=== PATIENT | male | born 1975 | race Caucasian/White ===

== ENCOUNTER 2024-07-25 08:51 | Outpatient (REF) | payer MEDICAID, SELFPAY ==
--- OUTSIDE RECORDS SUMMARY | 2024-07-25 09:10 | XMS_ITS | Clinical Summary ---
Author Organization [facility] Address [address] [facility] [facility] 7t [place] [address] Care Team Providers Care [employer] Agent Name Role Phone Rose Stratton MD Primary Care Provider [phone] Allergies No known active allergies Medications hydroCHLOROthiaz juan (HYDRODiuril) 25 MG tablet Take 1 tablet (25 mg) by mouth Once per day. 30 tablet 11 07/24/2024 6 Active aspirin 81 MG EC tablet Take 1 tablet (81 mg) by mouth Once per day. 30 tablet 11 07/24/2024 6 Active Active Problems Problem Noted Date Diagnosed Date Primary hypertension 07/24/2024 Tobacco abuse 07/24/2024 Encounters Date Type Department Care Team Description 07/24/2024 9:00 AM EDT Office Visit [facility] [address] [place] [address] Rose Stratton MD Primary hypertension (Primary Dx); Tobacco abuse; Screening for colon cancer; Encounter for immunization; Dietary counseling; Exercise counseling; Testicular discomfort; Encounter for screening for respiratory tuberculosis 07/24/2024 Travel 07/05/2024 Population Health Risk Score [facility] (C3) Department [address] [id number] Provider, Population Health Generic from Last 3 Months Immunizations Name Administration Dates Next Due Tdap 07/24/2024 Family History Relation Name Status Comments Father Alive Mother Alive Social History Tobacco Use Types Packs/Day Years Used Date Smoking Tobacco: Some Days Cigarettes Smokeless Tobacco: Never Tobacco Cessation:Ready to Q uit: Not Asked; Counseling Given: Not Answered Alcohol Use Standard Drinks/Week Comments Yes 0 (1 standard drink = 0.6 oz pur e alcohol) Alcohol Answer Date Recorded How often do you have a drink containing alcohol ? 2 07/24/2024 How many drinks containing a lcohol do you have on a typical day when you are drinking? 2 07/24/2024 How often do you have six or more drinks on one occasion? 3 07/24/2024 Depression Answer Date Recorded Patient Health Questionnaire-9 Score 1 07/24/2024 Patient Health Questionnaire-9 Score 1 07/24/2024 Last PHQ-9: Questionnaire Data Not on file 0 07/24/2024 Housing Stability Answer Date Recorded What is your housing situation today? I have ran casas 07/24/[address] you li ve. Do you have problems with any of the following? None of the above 07/24/2024 Food Insecurity Answer Date Recorded Within the past 12 months, y ou worried that your food would run out before you got money to buy more: Never True 07/24/2024 Within the past 12 months,th e food you bought just didn't last and you didn't have enough money to get more: Never True 05/2024 Transportation Answer Date Recorded In the past 12 months, has l ack of transportation kept you from medical appts, meetings, work or from getting things needed for daily living? No 07/24/2024 Utilities Answer Date Recorded In the past 12 months, has t he electric, gas, oil or water company threatened to shut off services in your home? No 07/24/2024 Depression Answer Date Recorded Patient Health Questionnaire-2 Score 0 07/24/2024 Internet Access Answer Date Recorded Internet Access Q1 No 07/24/2024 Internet Access Q2 I do not want or need it 05/2024 Sex and Gender Information Value Date Recorded Sex Assigned at Male 07/18/2024 1:40 PM EDT Legal Sex Male 1:41 PM EST Gender Identity Male 07/23/2024 1:41 PM EDT Sexual Orientation Don't know 07/23/2024 1: 41 PM EDT Last Filed Vital Signs Vital Sign Reading Time Taken Comments Blood Pressure 164/102 07/24/2024 9:03 AM EDT Manually checked Pulse 83 07/24/2024 9:03 AM EDT Temperature 36.4 ??C (97.5 ??F) 07/24/2024 9 :03 AM EDT Respiratory Rate 18 07/24/2024 9:03 AM EDT Oxygen Saturation 99% 07/24/2024 9:0 3 AM EDT Inhaled Oxygen Concentration - - Weight 94.8 kg (209 lb) 07/24/2024 9:03 AM EDT Height 180.3 cm (5' 11 ) 07/24/2024 9:0 3 AM EDT Body Mass Index 29.15 07/24/2024 9:03 AM EDT Plan of Treatment Upcoming Encounters Date Type Department Care Team ([facility] st Contact Info) Description 08/16/2024 10:15 AM EDT Clinical Support [facility] [address] [place] [address] 09/13/2024 10:45 AM EDT Office Visit [facility] [address] [place] [address] Rose Stratton MD [address] [place] [address] Health Maintenance Due Date Last Done Comments CT Colonography 1976 Colonoscopy 1976 Colorectal Cancer Screening 1976 FIT DNA/Cologuard 1976 FIT 1976 FOBT 1976 Lipid Panel 1976 Sigmoidoscopy 1976 Family Planning (PISQ) 02/05/1991 Hepatitis C Screening 02/05/1994 Hepatitis B Vaccines (1 of 3 - 19+ 3-dose series) 02/05/1995 Pneumococcal Vaccine: Pediatrics (0 to 5 Years) and At-Risk Patients (6 to 49) Years) (1 of 2 - PCV) 02/05/1995 Influenza Vaccine (#1) 2024 Postp oned from 12/24/2023 (Patient Refused) Alcohol/Substance Use Screening 07/24/2025 07/24/2024 COVID-19 Vaccine (3 - 2023-2 5 season) 2025 09/30/2020, 09/09/2020 Postponed from 12/24/2023 (Patient Refused) Depression Screening 07/24/2025 07/24/2024, 07/24/2024 SDOH Screening 07/24/2025 07/24/2024 Tobacco Screening 07/24/2025 07/24/2024 Zoster Vaccines (1 of 2) 02/05/2026 DTaP/Tdap/Td Vaccines (2 - T d or Tdap) 07/24/2034 07/24/2024 RSV Patients and Patients Aged 60 years or older (1 - 1-dose 75+ series) 02/05/2051 HIV Screening Completed 01/26/2022 HIB Vaccines Aged Out No longer eligi ble based on patient's age to complete this topic HPV Vaccines Aged Out No longer eligi ble based on patient's age to complete this topic Hepatitis A Vaccines Aged Out No long er eligible based on patient's age to complete this topic IPV Vaccines Aged Out No longer eligi ble based on patient's age to complete this topic Meningococcal Vaccine Aged Out No kandi stacey eligible based on patient's age to complete this topic RSV under 20 months Aged Out No longe r eligible based on patient's age to complete this topic Rotavirus Vaccines Aged Out No longer eligible based on patient's age to complete this topic [place] [address] [place] [address] C3 Care Teams [employer] Agent Relationship Specialty Start Date End Date Rose Stratton MD [address] [place] [id number] PCP - General Family Medicine 07/24/24
--- OUTSIDE RECORDS SUMMARY | 2024-07-25 09:10 | XMS_ITS | Encounter Summary ---
Author Organization [employer] Address [address] 7t [place] [address] Care Team Providers Care Unit Support Representative Name Role Phone Rose Stratton MD Primary Care Provider [phone] Encounter Details Date Type Department Care Team (Latest Contact Info) Description 07/24/2024 Travel Social History Tobacco Use Types Packs/Day Years Used Date Smoking Tobacco: Some Days Cigarettes Smokeless Tobacco: Never Alcohol Use Standard Drinks/Week Comments Yes 0 [...] is your housing situation today? I have ranbea casas 07/24/[address] you [...] t he electric, gas, oil or water [employer] threatened to shut off services in your [...] Don't know 07/23/2024 1: 41 PM EDT documented as of this encounter Plan of Treatment Upcoming Encounters Date Type Department Care Team (Late st Contact Info) Description 08/16/2024 10:15 AM EDT Clinical Support [facility] MED [facility] PEDS [address] [place] [address] 09/13/2024 10:45 AM EDT Office Visit [facility] [address] [place] [address] Rose Stratton MD [address] [place] [address] documented as of this encounter Visit Diagnoses Not on filedocumented in this encounter Additional Health Concerns Assessment Noted Time PHQ-9 Depression Total Score: 1 07/25/19 25 9:07 AM EDT documented as of this encounter Care Teams Unit Support Representative Relationship Specialty Start Date End Date Rose Stratton MD [address] [place] [address] PCP - General Family Medicine 07/24/24 documented as of this encounter
--- OUTSIDE RECORDS SUMMARY | 2024-07-25 09:10 | XMS_ITS | Encounter Summary ---
Author Organization [employer] Address [address] [facility] 7t [place] [address] Care Team Providers Care Cement Mason Apprentice Name Role Phone Carlitos Stratton MD Primary Care Provider [phone] Reason for Referral * Consultation (Routine) - Authorized Specialty Diagnoses / Procedures Referred By Joseph douglass Referred To Contact Urology Diagnoses Testicular discomfort Carlitos Stratton MD [address] [place] [address] Phone: tel: fax: [facility] Urology [address] [place], [place] Phone: tel: fax: Referral ID Status Reason Start Date Expiration Date Visits Requested Visits Authorized [id number] Authorized Specialty Services Required 07/24/2024 07/24/2025 1 1 * Consultation (Routine) - Authorized Specialty Diagnoses / Procedures Referred By Joseph douglass Referred To Contact Gastroenterology Diagnoses Screening for colon cancer Carlitos Stratton MD [address] [place] [address] Phone: tel: fax: [facility] Gastroenterology [address] 3rd [address] [place], [place] Phone: tel: fax: Referral ID Status Reason Start Date Expiration Date Visits Requested Visits Authorized [id number] Authorized Specialty Services Required 07/24/2024 07/24/2025 1 1 Reason for Visit * Reason Comments Establish Care Encounter Details Date Type Department Care Team ([facility] st Contact Info) Description 07/24/2024 9:00 AM EDT Office Visit [facility] MED & PEDS [address] [place] [address] Carlitos Stratton MD [address] [place] [address] Primary hypertension (Primary Dx); Tobacco abuse; Screening for colon cancer; Encounter for immunization; Dietary counseling; Exercise counseling; Testicular discomfort; Encounter for screening for respiratory tuberculosis Social History Tobacco Use Types Packs/Day Years [...] PM EDT documented as of this encounter Last Filed Vital Signs Vital Sign Reading [...] Mass Index 29.15 07/24/2024 9:03 AM EDT documented in this encounter Progress Notes * Carlitos Stratton MD - 07/24/2024 9:00 AM EDT Subjective Patient ID: Blane Keene is a 49 y.o. male who presents for Establish Care. Hypertension This is a new problem. The problem is unchanged. The problem is uncontrolled. Pertinent negatives include no anxiety, blurred vision, chest pain, headaches, malaise/fatigue, neck pain, orthopnea, palpitations, peripheral edema, PND, shortness of breath or sweats. Risk factors for coronary artery disease include family history, obesity and sedentary lifestyle. Past treatments include nothing. Review of Systems Constitutional: Negative for malaise/fatigue. Eyes: Negative for blurred vision. Respiratory: Negative for shortness of breath. Cardiovascular: Negative for chest pain, palpitations, orthopnea and PND. Musculoskeletal: Negative for neck pain. Neurological: Negative for headaches. Objective Physical Exam Constitutional: Appearance: Normal appearance. Cardiovascular: Rate and Rhythm: Normal rate and regular rhythm. Pulmonary: Effort: Pulmonary effort is normal. Breath sounds: Normal breath sounds. Neurological: General: No focal deficit present. Mental Status: He is alert. Psychiatric: Mood and Affect: Mood normal. Behavior: Behavior normal. Assessment/Plan Diagnoses and all orders for this visit: Primary hypertension Comments: Started On HCTZ and Aspirin Maintain a low-sodium diet (less than 2 grams per day). Maintain a regular cardiovascular exercise program. Advised to maintain a low-fat, low-cholesterol diet. Counseled regarding importance of weight loss. Counseled re: potential co-morbidities including cardiovascular disease. Orders: - Basic Metabolic Panel; Future - Lipid Panel, Standard; Future - Hepatic Function Panel; Future Tobacco abuse Comments: Strongly advised to quit smoking Testicular discomfort chronic problem Referred to Uro Screening for colon cancer - Cologuard?? colon cancer screening - Referral to Gastroenterology; Future Encounter for immunization - TDAP VACCINE 7 yrs + Dietary counseling Exercise counseling Advised Low sugar and Low carb diet. Counseled re: potential co-morbidities including cardiovascular disease. Counseled re: potential co-morbidities include neuropathy and retinopathy. Counseled re: potential co-morbidities include nephropathy. Other orders - hydroCHLOROthiazide (HYDRODiuril) 25 MG tablet; Take 1 tablet (25 mg) by mouth Once per day. - aspirin 81 MG EC tablet; Take 1 tablet (81 mg) by mouth Once per day. documented in this encounter Miscellaneous Notes * Addendum Note - Carlitos Stratton MD - 07/24/2024 9:00 AM EDTAddended by: CARLITOS STRATTON on: 07/24/2024 10:01 AM Modules accepted: Orders documented in this encounter Plan of Treatment Upcoming Encounters Date Type Department Care Team ([facility] st Contact Info) Description 08/16/2024 10:15 AM EDT Clinical Support [facility] [address] [place] [address] 09/13/2024 10:45 AM EDT Office Visit [facility] [address] [place] [address] Carlitos Stratton MD [address] [place] [address] Scheduled Orders Name Type Priority Associated Diagnoses Orde r Schedule Basic Metabolic Panel Lab Routine Primary hypertension Expected: 07/24/2024 (Approximate), Expires: 07/24/2025 Lipid Panel, Standard Lab Routine Primary hypertension Expected: 07/24/2024 (Approximate), Expires: 07/24/2025 Hepatic Function Panel Lab Routine Primary hypertension Expected: 07/24/2024 (Approximate), Expires: 07/24/2025 Cologuard?? colon cancer screening Lab Routine Screening for colon cancer Ordered: 07/24/2024 QuantiFERON TB Gold Lab Routine Encounter for screening for respiratory tuberculosis Expected: 07/24/2024 (Approximate), Expires: 07/24/2025 Scheduled Referrals Name Type Priority Associated Diagnoses Order Schedule Referral to Gastroenterology Outpatient Referral Routine Screening for colon cancer Expected: 07/24/2024 (Approximate), Expires: 07/24/2025 Referral to Urology Outpatient Referral Routine Testicular discomfort Expected: 07/24/2024 (Approximate), Expires: 07/24/2025 documented as of this encounter Visit Diagnoses Diagnosis Primary hypertension- Primary Unspecified essential hypertension Tobacco abuse Tobacco use disorder Screening for colon cancer Special screening for malignant neoplasms, colon Encounter for immunization Dietary counseling Dietary surveillance and counseling Exercise counseling Testicular discomfort Encounter for screening for respiratory tuberculosis documented in this encounter Additional Health Concerns Assessment Noted Time PHQ-9 Depression Total Score: 1 07/25/19 25 9:07 AM EDT documented as of this encounter Care Teams Cement Mason Apprentice Relationship Specialty Start Date End Date Carlitos Stratton MD [address] [place] [address] PCP - General Family Medicine 07/24/24 documented as of this encounter
--- OUTSIDE RECORDS SUMMARY | 2024-07-25 09:10 | XMS_ITS | Clinical Summary ---
Author Organization [facility] Address [address] [place] [address] Care Team Providers Care Director Trust Name Role Phone Kat Bernabe PA-C Primary Care Provider [phone] Source Comments PLEASE NOTE, if this patient is a minor, it may be UNLAWFUL to discuss sensitive information that is contained in these records (such as FAMILY PLANNING, MENTAL HEALTH or SUBSTANCE ABUSE) with the minor patient's parent or other person without the patient's specific authorization.[facility] Medications tamsulosin (FLOMAX) 0.4 mg 24 hr capsuleIndicatio ns:Altered urinary elimination pattern TOME ANGELES [place] TODOS LOS VU 30 Capsule 1 03/30/2022 Active Active Problems No known active problems Social History Tobacco Use Types Packs/Day Years Used Date Smoking Tobacco: Never Assessed Social Connections Answer Date Recorded Connectedness 0 01/13/2024 Financial Resource Strain Answer Date R ecorded Financial Resource Strain 0 2018 Stress Answer Date Recorded Stress 0 12/25/2018 Physical Activity Answer Date Recorded Physical Activity 0 12/25/2018 Food Insecurity Answer Date Recorded Food 0 01/18/2024 Transportation Needs Answer Date Record ed Transportation 0 12/25/2018 Housing Stability Answer Date Recorded Housing 0 12/25/2018 Safety and Environment Answer Date Santy rded Safety 0 12/25/2018 Utilities Answer Date Recorded Utilities 0 12/25/2018 Employment Answer Date Recorded Stress 0 01/13/2024 Sex and Gender Information Value Date Recorded Sex Assigned at Male 01/26/2022 12:21 PM PDT Legal Sex Male 1:42 PM PDT Gender Identity Male 01/26/2022 12:21 PM PDT Sexual Orientation Straight 01/26/2022 12 :21 PM PDT Last Filed Vital Signs Vital Sign Reading Time Taken Comments Blood Pressure 142/99 01/26/2022 2:19 PM EDT Pulse 70 01/26/2022 2:19 PM EDT Temperature 36.9 ??C (98.5 ??F) 01/26/2022 2:19 PM ED T Respiratory Rate - - Oxygen Saturation 97% 01/26/2022 2:19 PM EDT Inhaled Oxygen Concentration - - Weight 97.5 kg (215 lb) 01/26/2022 2:19 PM EDT Height - - Body Mass Index - - Plan of Treatment Health Maintenance Due Date Last Done Comments Anxiety Screening 1976 Hepatitis C Screening 1976 Lipid Screening 1976 Tobacco Screening 1976 Imm-DTaP/Tdap/Td (1 - Tdap) 02/05/1995 Imm-Hepatitis B (1 of 3 - 19 + 3-dose series) 02/05/1995 CT Colonography 02/05/2021 Colonoscopy 02/05/2021 Colorectal Cancer Screening 02/05/2021 FIT/gFOBT 02/05/2021 Fecal DNA 02/05/2021 Flexible Sigmoidoscopy 02/05/2021 Hypertension Screening (#1) 01/26/2023 [id number] ( season) 2023 021, 09/09/2020 Imm-Influenza (#1) 2023 Alcohol and Drug Screen 04/24/2024 Depression Annual Screen 04/24/2024 Diabetes Screening 01/26/2025 01/26/2022 HIV Screening Completed 01/26/2022 Procedures Procedure Name Priority Date/Time Associated Diagnosis Comments HIV 1/2 AG & AB W/RFLX (4TH GEN) Routine 01/26/2022 2:51 PM EDT Pelvic pain Pain in both testicles COMPREHENSIVE METABOLIC PANEL Routine 01/26/2022 2:51 PM EDT Pelvic pain Pain in both testicles from Last 3 Months or Most Recently Relevant to Health Maintenance Results * HIV 1/2 AG & AB W/RFLX (4TH GEN) (01/26/2022 2:51 PM EDT) Pathologist [facility] HIV AG/AB, 4TH GEN NON-REAC TIVE NON-REAC TIVE [facility] Comment: HIV-1 antigen and HIV-1/HIV-2 antibodies were not detected. There is no laboratory evidence of HIV infection. PLEASE NOTE: This information has been disclosed to you from records whose confidentiality may be protected by state law. ??If your state requires such protection, then the state law prohibits you from making any further disclosure of the information without the specific written consent of the person to whom it pertains, or as otherwise permitted by law. A general authorization for the release of medical or other information is NOT sufficient for this purpose. ?? For additional information please refer to http://education.[employer]/faq/VHD374 (This link is being provided for informational/ educational purposes only.) The performance of this assay has not been clinically validated in patients less than 2 years old. Blood Blood / Unknown 01/26/2022 2 :51 PM EDT 01/26/2022 2:52 PM EDT us Rosa Hobson NP LAB - BLOOD DRAW Final Resul t [facility] [facility] [address] [address], [facility] [address] [address] * COMPREHENSIVE METABOLIC PANEL (01/26/2022 2:51 PM EDT) Pathologist [facility] GLUCOSE 88 65 - 99 mg/dL [facility] Comment: ?Fasting reference interval UREA NITROGEN (BUN) 14 7 - 25 mg/dL [facility] CREATININE (blood) 0.83 0.60 - 1.29 mg/dL [facility] EGFR 110 > OR = 60 mL/min/1 .73m2 [facility] Comment: The eGFR is based on the CKD-EPI 202 equation. To calculate the new eGFR from a previous Creatinine or Cystatin C result, go to https://www.kidney.org/professionals/ kdoqi/gfr%5Fcalculator BUN/CREATININE RATIO NOT APPLICABLE [facility] SODIUM 136 135 - 146 mmol/L [facility] POTASSIUM 3.9 3.5 - 5.3 mmol/L [facility] CHLORIDE 101 98 - 110 mmol/L [facility] CARBON DIOXIDE 25 20 - 32 mmol/L [facility] CALCIUM 9.6 8.6 - 10.3 mg/dL [facility] PROTEIN, TOTAL 7.5 6.1 - 8.1 g/dL [facility] ALBUMIN 4.6 3.6 - 5.1 g/dL [facility] GLOBULIN 2.9 1.9 - 3.7 g/dL (calc) [facility] ALBUMIN/GLOBUL IN RATIO 1.6 1.0 - 2.5 (calc) [facility] BILIRUBIN, TOTAL 0.4 0.2 - 1.2 mg/dL [facility] ALKALINE PHOSPHATASE 62 36 - 130 U/L [facility] AST 29 10 - 40 U/L [facility] ALT 32 9 - 46 U/L [facility] Blood Blood / Unknown 01/26/2022 2 :51 PM EDT 01/26/2022 2:52 PM EDT us Rosa Hobson NP LAB - BLOOD DRAW Edited Resu lt - Final [facility] [address] [address], [facility] [address] [address] from Last 3 Months or Most Recently Relevant to Health Maintenance Insurance [employer] Care Teams Director Trust Relationship Specialty Start Date End Date Kat Bernabe PA-C [facility] [place] [address] PCP - General Internal Medicine 09/04/23
[2024-07-25 14:26] LABS: Alanine Aminotransferase 20 U/L (0-40); Albumin Level 4.5 g/dL (3.5-5.0); Alkaline Phosphatase 70 U/L (39-117); Anion Gap 10 (12-20); Aspartate Amino Transferase 23 U/L (5-37); Bilirubin Direct 0.2 mg/dL (0.0-0.5); Bilirubin Total 0.7 mg/dL (0.0-1.0); Blood Urea Nitrogen 14 mg/dL (9-16); Calcium 9.5 mg/dL (8.4-10.2); Carbon Dioxide 27 mmol/L (22-29); Chloride 104 mmol/L (96-108); Cholesterol 163 mg/dL (<200); Estimated Glomerular Filt Rate > 60; Glucose Random 88 mg/dL (60-115); HDL Cholesterol 37 mg/dL (>40); LDL Cholesterol Calculated 91 mg/dL (<100); Potassium 3.7 mmol/L (3.3-5.1); Sodium 137 mmol/L (135-145); Total Protein 7.5 g/dL (6.5-8.0); Triglycerides 178 mg/dL (<150)
== END 2024-07-25 08:52 | disposition home or self-care (01) ==
LOC: HO.CHCLDS 08:51
PROVIDERS: Visit Provider Student in an Organized Health Care Education/Training Program
DX: I10 Essential (primary) hypertension (principal)
CPT/HCPCS: 36415; 80048; 80061; 80076